=== PATIENT | male | born 1990 | race Caucasian/White ===

== ENCOUNTER 2016-10-08 08:04 | Inpatient (IN) | payer OTHER ==
[~2016-10-08] VITALS: Ht 172.7 cm; Wt 67.7 kg
--- NOTE | ~2016-10-08 | INDIVTXPLN ---
"PATIENT: HENRIQUE ARMENTA B | | [facility] UNIT #: [id number] | [address] AGE/SEX: 25 M : [birth year] | [address] | [place] [phone] ADMIT/REG DATE: 10/08/16 | ROOM: A.[facility] LOC: ADTC | ADTC | Individualized Treatment Plan Date: 10/29/16 Problem Statement/Issue Identified: Client needs to identify relapse warning signs and develop a plan to deal with them as they arise. Goal: Client will learn to identify relapse triggers and make a plan of how to avoid them. Objectives/Activities to achieve goal: 1. Client is to complete the Relapse Prevention packet and process it with counselor. Due Date:11/05/16 Complete: Incomplete: Client signature Date Counselor signature Date Outcome/Measurement of Progress Towards Goal: Counselor's signature Date "
--- NOTE | ~2016-10-08 | INDIVTXPLN ---
"PATIENT: HENRIQUE ARMENTA Scooter | | [facility] UNIT #: [id number] | [address] AGE/SEX: 25 M : [birth year] | [address] | [place] [phone] ADMIT/REG DATE: 10/08/16 | ROOM: A.[facility] LOC: ADTC | ADTC | Individualized Treatment Plan Date: 10/16/16 Problem Statement/Issue Identified: Client has learned to deny or stuff feelings; needs to learn to identify and process them in a clean/sober manner. Goal: Client will learn to identify and express feelings in a healthy, clean/sober manner. Objectives/Activities to achieve goal: 1. Client is to write the following people feelings letters, each separately, and process them with counselor and in family group, when able: His Mother, girlfriend, 2 children and his father. Due Date:10/23/16 Complete: Incomplete: Client signature Date Counselor signature Date Outcome/Measurement of Progress Towards Goal: Counselor's signature Date "
--- NOTE | ~2016-10-08 | TXPLANREV ---
"PATIENT: HENRIQUE ARMENTA | | [facility] UNIT #: [id number] | [address] AGE/SEX: 25 M : [birth year] | [address] | [place] [address] ADMIT/REG DATE: 10/08/16 | ROOM: A.[facility] LOC: ADTC | [facility] | Treatment Plan/Staffing Review Date: 10/29/16 Treatment plan was reviewed and determined appropriate as written: Yes Treatment plan was reviewed and the following changes/addition/deletions are necessary: Client is to continue working on treatment plan assignments. He is finishing up with feelings letters and will begin working on relapse prevention. Discharge plans were reviewed and determined appropriate as previously documented: No Discharge plans were reviewed and determined to be as follows: Client has been staffed with probation and our staff, and we agree he will be recommended to go to sober living, such as the [facility]. He will also be recommended to attend aftercare here at [facility], 3-5 AA/NA meetings per week, call a sponsor on a regular basis, seek multimedia production assistant employment and learn how to work a strong program of recovery. Other pertinent issues discussed during this staffing review include: None at this time. Staff Present: Emilia Barclay PRIMARY COUNSELOR: DUNCAN Michelle Client Signature Counselor Signature Date Time "
--- NOTE | ~2016-10-08 | RESCARESUM ---
"PATIENT: HENRIQUE ARMENTA | | [facility] UNIT #: [id number] | [address] AGE/SEX: 25 M : [birth year] | [address] | [place] [address] ADMIT/REG DATE: 10/08/16 | ROOM: [facility] LOC: ADTC | ADTC | Summary of Residential Care Primary Counselor: Agustina SONG Date of Admission: 10/08/16 Date of Discharge: 11/05/16 Referral Source: Courts and Coil Inspector, Preeti Shipley Primary Care Provider Prior to Admission: Self Admitting Diagnosis: 304.30 Cannabis Use Disorder, severe; 304.40 Stimulant Use Disorder, severe; near complete partial remission tobacco dependency and history of spinal cord trauma with spondylotic myopathy as previously evaluated and diagnosed by Dr. Benitez in Neurosurgery, ALL PER [facility] Discharge Diagnosis: Same Goals Achieved: Jordan was able to learn about the disease concept, about the negative consequences of his addiction, and his character defects, while learning about the program. He was able to complete feelings letters, and worked on relapse prevention. Continued Obstacles to Sobriety/Relapse Issues: Not going to meetings, or coming to aftercare, not dealing with feelings, not following rules and regulations of probation, not getting a job, not attending AA/NA meetings or getting a sponsor, and not learning how to work a strong program of recovery. Family Issues Addressed: The only issues addressed were those with his kids and his parents. He wrote and processed feelings letters to all of them. Y Individual Therapy Y Group Therapy Y Educational Series on Substance Abuse N Parents/Significant Others Attended Family Program N Acute Medical Problems During the Course of Treatment Y Transferred to Hospital During the Course of Treatment Y Accepting of Substance Abuse Problem N Non-accepting of Substance Abuse Problem N Required Psychological or Psychiatric Consultation During the Course of Treatment Completed AA Step # 1 During This Level of Care Significant Incidences During Treatment: Jordan slipped on the ice and fell and was taken to ER, where they discovered he had a mild concussion. He was feeling fine, had no complaints and stated he didn't have a headache or anything bothering him. Reason For Discharge: Y Completed Residential TX Goals and Ready For Next Level of Care N Left Tx Against Medical Advice/Treatment Goals Not Complete PATIENT: HENRIQUE ARMENTA Scooter | | [facility] UNIT #: [id number] | [address] AGE/SEX: 25 M : 89 | [address] | [place] [address] ADMIT/REG DATE: 10/08/16 | ROOM: [facility] LOC: ADTC | [facility] | Summary of Residential Care N Completed Residential Tx Goals But Refusing Continuing Care Recommendations N Discharged Due to Noncompliance/Treatment Goals not Completed N Discharged Earlier Than Planned Due to: Continuing Care Plan/Recommendations: N Intensive Partial Care Y Sponsor N Partial Care Y AA Meetings/NA Meetings Y Outpatient N Co-dependency Services N Therapeutic Community N [address] [facility] [address] [facility] N Mental Health Therapy N Marriage Counseling N Other Specific Continuing Care Plan: It is recommended that Jordan go to sober living, such as the [facility], attend aftercare here with Devan Pruett, and attend 3-5 AA/NA meetings, get and call a sponsor on a regular basis. Jordan chose to return home, but will attend aftercare. He is also recommended to follow all rules of probation, seek timers inspector employment and take care of his medical issue concerning his back. PRIMARY COUNSELOR: DUNCAN Michelle"
--- NOTE | ~2016-10-08 | TXPLANREV ---
"PATIENT: HENRIQUE ARMENTA B | | [facility] UNIT #: [id number] | [address] AGE/SEX: 25 M : [birth year] | [address] | [place] [phone] ADMIT/REG DATE: 10/08/16 | ROOM: A.[facility] LOC: ADTC | ADTC | Treatment Plan/Staffing Review Date: 10/22/16 Treatment plan was reviewed and determined appropriate as written: Yes Treatment plan was reviewed and the following changes/addition/deletions are necessary: Client is to continue working on treatment plan assignments. He is finishing up with feelings letters. Discharge plans were reviewed and determined appropriate as previously documented: No Discharge plans were reviewed and determined to be as follows: Client plans to return to his Mom's house, attend aftercare and meetings on a regular basis, as well as to get and call a sponsor. Other pertinent issues discussed during this staffing review include: None at this time. Staff Present: Devan Phan PRIMARY COUNSELOR: DUNCAN Michelle Client Signature Counselor Signature Date Time "
--- NOTE | ~2016-10-08 | CLPRLASSUM ---
PATIENT: HENRIQUE ARMENTA | | [facility] UNIT #: [id number] | [address] AGE/SEX: 25 M : 89 | [address] | [place] [phone] ADMIT/REG DATE: 10/08/16 | ROOM: [facility] LOC: ADTC | ADTC | Client Problem List/Assessment Summary Date: 10/15/16 Problems identified by the client: Client stated he is here for probation, of which he is on for the next 2 years for misdeamor assault and possession of drug paraphernalia. Problems identified by significant others: His Mother and girlfriend came in when client checked in and they just said they want him to get better and stay clean. Client's Strengths: Client identified his strengths as: He is patient, outgoing and understanding. Problem List: Code: T Client continues to use alcohol &/or drugs despite ongoing negative consequences. Code: T Client does not "reach-out to others for help" and instead resumes using alcohol &/or drugs. Code: T Client has learned to deny or stuff feelings; needs to learn to identify and process feelings with safe people to acquire the necessary skills to maintain halfway sobriety. Code: T Client needs to identify relapse warning signs and develop a plan to deal with them as they arise. Code: T Client needs to address criminal attitudes and beliefs which leads to substance abuse and crimes. Code Pérez: T: to be addressed during course of treatment O: problem noted, expected to resolve itself with abstinence--specific tx plan not required R: problem noted, will be referred upon discharge PRIMARY COUNSELOR: DUNCAN Michelle
--- NOTE | ~2016-10-08 | INDIVTXPLN ---
"PATIENT: HENRIQUE ARMENTA Scooter | | [facility] UNIT #: [id number] | [address] AGE/SEX: 25 M : 89 | [address] | [place] [phone] ADMIT/REG DATE: 10/08/16 | ROOM: A.[facility] LOC: ADTC | ADTC | Individualized Treatment Plan Date: 10/15/16 Problem Statement/Issue Identified: Client continues to use alcohol &/or drugs despite ongoing negative consequences, and he did not know anyone to reach out to for help, so continued using alcohol &/or drugs. Goal: Client will learn how to identify negative consequences of his addiction, attend AA/NA meetings and meet men in recovery. Objectives/Activities to achieve goal: 1. Client is to complete the How to Get Started packet, process it with counselor and selected pages in group. Due Date:10/17/16 Complete: Incomplete: 2. Client is to complete Step 1, process it with counselor and selected pages in group. Due Date:10/19/16 Complete: Incomplete: 3. Client is to attend AA/NA meetings, ask for and get at least 5 names and numbers of men in recovery and share that list with counselor. Due Date:10/28/16 Complete: Incomplete: Client signature Date Counselor signature Date Outcome/Measurement of Progress Towards Goal: Counselor's signature Date "
--- NOTE | 2016-10-08 14:50 | NUR ---
Education 0.5 Hour: Client attended a presentation by an outwside speaker who spoke on, "Cross Addiction."
--- NOTE | 2016-10-08 15:13 | NUR ---
ADMISSION NOTE Client is a 25 y/o single male, referred to treatment by the courts and brought here today by his mom and significant other. Client came from home in [place], where he reside with his mother. Client states DOC is marijuana and meth. Client states his most recent marijuana use was about a month a ago, and that he used a small amount of meth 4 days ago. Client states [facility] brings no medications with him today. Client anticipates family group participation from his mom and his significant other. Rights/Responsibilities: Copy given and explained to client. Signed and accepted by client. Client oriented to physical lay out of the ADTC unit, given Big Book and admission packet. A Jaime was assigned. Farhan
--- NOTE | 2016-10-08 16:08 | NUR ---
INITIAL SESSION/FAMILY SESSION 1 HR: Eva, his Mom and g/f were present. They had questions about the program, visiting, how long he'll be here, family education. All questions were answered, and he was oriented to my schedule and programming. Eva is here for court reasons. He stated he has 2 children, of which live w/ their mom. He has a no contact order with them, as he also has a strangulation charge. His mom is glad he's here, and that we are keeping him busy, and his g/f reported she's in recovery. He is to work on inititial paperwork.
--- NOTE | 2016-10-08 23:09 | NUR ---
Tech note: Client participated in beaded project for rec and attended an onsite AA meeting. He was checked into his room and seen by the DR. Client did first intro in meeting SE; starting treatment
--- NOTE | 2016-10-09 04:02 | NUR ---
Bed Note; Client was asleep and in no distress at all bed checks.
--- NOTE | 2016-10-09 09:58 | NUR ---
Tech notes: Client is working on Step 1.
--- NOTE | 2016-10-09 12:09 | NUR ---
AM GROUP 9:1/.5 HR: Peers participated in the ORIENTATION OF A THIS NEW PEER by identifying GROUP PURPOSE, GUIDELINES, GOALS AND OBJECTIVES. Client identified his drug of choice as meth, stating that he came in to treatment on his own. He did admit that he is on probation and with probing, identified he is on probation for possession and domestic assault. Client appeared drowsy at time, but he was able to stay awake. He was otherwise quiet as peers processed from assignments and took no personal risks..
--- NOTE | 2016-10-09 12:45 | NUR ---
Education note: Client attended education by [facility].
--- NOTE | 2016-10-09 17:44 | NUR ---
SPIRITUaL EDUCATION 1 HR. Todays topic after orienting newcomers was GRATITUDE with information taken from ATTITUDES OF GRATITUDE.
--- NOTE | 2016-10-09 19:20 | NUR ---
Education: 1 Hour. Client attended "Unresloved Anger" lecture and discussion presented by staff.
--- NOTE | 2016-10-09 23:11 | NUR ---
Tech note; Client played catch phrase for rec and attended an onsite NA meeting. SE; rec
--- NOTE | 2016-10-10 04:35 | NUR ---
Bed Note: Client was asleep and in no distress at all bed checks.
--- NOTE | 2016-10-10 10:48 | NUR ---
Tech Note: Client participated in light stretching for morning exercise and stated that he is working on Step One.
--- NOTE | 2016-10-10 11:21 | NUR ---
AM GRP 1.5 HRS, Ratio 1:9/ Clt sat mostly quiet, appearing to be just taking things in. When prompted, he stated he did dumb things while he was using. He could relate to partying w/ his Mom, but denied they are "friends".
--- NOTE | 2016-10-10 12:30 | NUR ---
IS 1 HR: Clkatt stated he is settling in and even tho he's really busy, he thinks it will be a good thing. He was asked about his father, of whom he doesn't have any contact with. He also has several brothers and sisters who live close, but he isn't real close to. He stated he is closest to his Mom. He is working on his initial paperwork.
--- NOTE | 2016-10-10 17:03 | NUR ---
Step ed/1 hr/ Handed out a worksheet on step 11 on prayer and meditation and had them complete and then we discussed. This client participated.
--- NOTE | 2016-10-10 17:49 | NUR ---
Education 1 Hour: Client heard a presentation from a member of the recovery community who shared his experience, strength and hope.
--- NOTE | 2016-10-10 23:40 | NUR ---
TECH NOTE: Client played Catch Phrase for REC and attended on site AA meeting. Walked into Guided Meditation 9 minutes late. SE: group/ AA
--- NOTE | 2016-10-11 02:19 | NUR ---
Education 1HR: Clt watched educational video entitled "Don't Meth With Me".
--- NOTE | 2016-10-11 04:52 | NUR ---
BED NOTE: Client was in bed, eyes closed and motionless all three bed checks
--- NOTE | 2016-10-11 11:58 | NUR ---
Group 1.5 Hr Ratio 1:12/Topics today were two step ones and two feelings letterts. A new client was orientated to group rules and goals. Client shared how he could relate to his peers and offered positive feedback.
--- NOTE | 2016-10-11 14:09 | NUR ---
PEER REVIEWS 1 HR: CLt participated in peer reviews and was able to give open and honest feedback to those receiving a review.
--- NOTE | 2016-10-11 15:45 | NUR ---
Tech Note: Client watched a video entitled "The Enablers" and is working on Step 1.
--- NOTE | 2016-10-11 20:49 | NUR ---
TECH NOTE: Client participated in reading guidelines, watched TV/movies and attended off site AA meeting. Client was redirected for being in bed, with lights out at shift change SE: Nap
--- NOTE | 2016-10-12 04:48 | NUR ---
BED NOTE: Client was in bed, motionless with eyes closed all bed checks.
--- NOTE | 2016-10-12 09:58 | HP ---
ADMIT: 10/08/2016 RM/LOC: [facility] MR#: [id number] [address] [facility] [address] [place] [id number] HENRIQUE ARMENTA [address] [place] [address] History and Physical SEX: M AGE: 25 : 1990 DATE OF SERVICE: CHIEF COMPLAINT: Chemical dependency. HISTORY OF PRESENT ILLNESS: The patient is a 25-year-old, single, male with 2 children who was court ordered to residential level treatment after a recent incarceration in May 2016, him being sent on probation and preferred residential level treatment for assault and possession of controlled substance. He states he has had prior DUI and MIPs. He hopes to get clean, straight, and sober. The patient's drug of choice on admission is pot. He first started smoking pot at 14 years of age with friends. In [employer] high, he smoked about 0.25 ounce a week. In high school he smoked a 0.25 to a 0.5 ounce a week. States he smoked that way off and on until the last month or so. He states in the last month he quit smoking pot due to his legal charges and probation. He has had two UAs that were both clean. His second drug of choice is methamphetamines. He first started smoking meth at 20 years of age. Initially, used it 1-2 times a week. He states his heaviest use was from February of 2016 to May 2016, after he hurt the spine. He had an injury and was diagnosed with a traumatic spondylitic myopathy by Dr. Benitez in Neurosurgery secondary to a fall. He states he was unable to work. So he just sat around and smoked meth. He states he was living with a drug dealer. He used a gram or more every day. His last use was around October 04 when he used less than a 0.5 g. He denies doing any IV drugs. He denies his third drug of choice but after questioning admits that he has abused alcohol in the past. He first started drinking at 14 years of age with friends. In ezio high, he would drink up to a liter of vodka a day. In high school, he drank a liter of hard liquor or up to a case a beers. States, he really drank that way from [age]. He states the last year too he has been drinking rarely. States he only drinks a couple times a year and will only have one or two drinks. His last alcohol was two drinks on 's Kamla. He denies any alcohol withdrawal seizures, DTs or hallucinations. He denied other drugs but looking at his record, he has tried cocaine once, mushrooms and acids a couple of times, and inhaled butane and has used high- dose Adderall and pain pills in the past for his back. CURRENT MEDICATIONS: None. ALLERGIES: NONE KNOWN. SOCIAL HISTORY: Is that of a 25-year-old, single, male. He has 2 children from a prior relationship and currently has a restraining order. He is unemployed. He has a prior spinal injury from a fall and was diagnosed with spondylotic myopathy by Dr. Benitez in Neurosurgery. MEDICATIONS: None. ADMIT: 10/08/2016 RM/LOC: [facility] MR#: [id number] [address] [place] [id number] HENRIQUE ARMENTA [facility] [place] [address] History and Physical SEX: M AGE: 25 : 1990 ALLERGIES: NONE KNOWN. SOCIAL HISTORY: Is that of a 25-year-old, unemployed single male, two kids. FAMILY HISTORY: Hypertension and diabetes. Maternal grandmother, mother and father had a history of alcohol abuse. REVIEW OF SYSTEMS: Remarkable for some problems with balance coordination in his arms as well as his legs. He has an abnormal gait. PHYSICAL EXAMINATION: HEENT: Pupils are reactive. TMs normal. Throat unremarkable. NECK: Without nodes or masses. HEART: Regular without murmur. LUNGS: Clear. ABDOMEN: Soft, benign. AND RECTAL: Deferred. EXTREMITIES: Reveal no clubbing, cyanosis, or edema. He has an abnormal gait and some abnormal dexterity in his hands. NEURO: He has no clubbing, cyanosis, or edema. ASSESSMENT: Cannabis use disorder severe; stimulant use disorder, severe; alcohol use disorder, severe; and near complete partial remission tobacco dependency and history of spinal cord trauma with spondylotic myopathy as previously evaluated and diagnosed by Dr. Benitez in Neurosurgery. PLAN: We will place him on a multivitamin and thiamine given his history of alcohol abuse and dependency. We will proceed with drug and alcohol abuse dependency treatment counseling and further evaluation and management based on the course during the hospitalization. Please see his hospital record for further details. Albin Leiva MD/ dora JOB #: [id number] CC: Albin Leiva, Attending Physician NO FAMILY PHYSICIAN, Family Physician
--- NOTE | 2016-10-12 15:40 | NUR ---
Tech notes: Client attended NA panel this morning and working on Step 1 and had visit.
--- NOTE | 2016-10-12 18:40 | NUR ---
tech note: client attended offsite recovery event.
--- NOTE | 2016-10-13 04:39 | NUR ---
Bed Note: Clt lay motionless in bed with eyes closed showing no distress at all bed checks.
--- NOTE | 2016-10-13 15:15 | NUR ---
Tech Note: Client participated in big book study and is working on step 1. Client had a visitor.
--- NOTE | 2016-10-13 23:33 | NUR ---
Tech note: Watched Superbowl, attended optional SLITTING MACHINE OPERATOR meeting SE:whole day
--- NOTE | 2016-10-14 04:35 | NUR ---
BED NOTE: Client was in bed, motionless, with eyes closed all bed checks.
--- NOTE | 2016-10-14 10:25 | NUR ---
Tech notes: Client is working on Step 1
--- NOTE | 2016-10-14 11:30 | NUR ---
Group 1.5hr/ 2:22 Clients all participated in THE WALL reading, drawing and sharing about their celeste with the group showing character defects and relapse triggers, plus what has helped them go gain hope and support in taking down their wall.
--- NOTE | 2016-10-14 12:55 | NUR ---
Education note: Client attended education by [facility], HIV testing.
--- NOTE | 2016-10-14 17:02 | NUR ---
Recovery 101 1 hr/ Clients involved in identifying and discussion about fundamentals of recovery. Did discuss types of meetings, how to get and use sponsors, working steps, reading DONNIE literature, using slogans/serenity prayer/tools, not to start new relationship first year, encourage family to go to [facility] and open AA/NA, finding a HP/home group, HOW/sayings/slogans, etc.
--- NOTE | 2016-10-14 18:21 | NUR ---
Education: 1 Hour. Client attended "Forgiveness" lecture given by staff.
--- NOTE | 2016-10-14 22:58 | NUR ---
tech note: client played Catch Phrase for recreation & attended onsite NA mtg. SE: all the food in the frig.
--- NOTE | 2016-10-15 05:16 | NUR ---
Tech Note: Clt lay motionless in bed with eyes closed showing no distress at all bed checks.
--- NOTE | 2016-10-15 11:30 | NUR ---
GROUP 1.5 HRS. 1:9 Group discussion included HOW TO GET STARTED IN TREATMENT assignments as well as issues of childhood abuse and unhealthy relationships. This client was mostly quiet and admitted that when he heard peer share about kids, he began reminiscing about his own kids.
--- NOTE | 2016-10-15 13:51 | NUR ---
Education 1 Hour: Client attended a presentation on "Tobacco Educaton."
--- NOTE | 2016-10-15 15:36 | NUR ---
Tech Note: Client participated in light stretching for morning exercise and walked in the halls in the afternoon. Client stated that he is working on Step One.
--- NOTE | 2016-10-15 15:57 | NUR ---
Relapse Prevention, 1.0, Client attended and actively participated in relapse prevention education which focused on the relapse quiz "What Do You Know About Relaps?"
--- NOTE | 2016-10-15 22:50 | NUR ---
Education note: 1 hour, lecture given by counselor on what heck are you willing to pay.
--- NOTE | 2016-10-15 23:15 | NUR ---
Tech note: Instead of rec clients went to an alumni meeting and attended an onsite AA meeting. SE; Meeting
--- NOTE | 2016-10-16 04:23 | NUR ---
Bed Note: Client was in bed with eyes closed and in no distress at all bed checks.
--- NOTE | 2016-10-16 10:00 | NUR ---
IS 1 HR: Processed eva's BPS, and some of the pages in his How to Get Started pkt. He shared about his family living in [facility], and an uncle taking his siblings away from his Mom, who was alcoholic. He got away from them, so he was the only one who stayed with his Mom, until they came to the [place] and were reunited. One of his brothers got "marshalled out", meaning he got into so much trouble, the marshalls flew him out of [facility]. He joined the , but has since gotten into more trouble. He has 3 other siblings who were , but he started using and got involved w/ his kids' Mom, and has stayed around here since coming at age 14. Eva has back issues w/ his sciatic nerve, and broke his tail bone, as well, so is dealing with pain on a daily basis. He heard to fill out a self-care sheet and use heat/ice to help.
--- NOTE | 2016-10-16 10:25 | NUR ---
Rose Notes: Client is working on BB and mtg with aleena
--- NOTE | 2016-10-16 11:30 | NUR ---
GROUP 1.5 HRS. 1:10 Group discussion included HOW TO GET STARTED IN TREATMENT as well as defenses and conflicts on the unit. This client was active in group discussion and encouraged peers to participate more as well.
--- NOTE | 2016-10-16 13:36 | NUR ---
SPIRITUAL EDUCATION 1 HR. Topics today were on getting out of self centered behavior and recovery slogans. Clients made BB bookmarks w slogans and also anonymously wrote welcoming letters for newcomers.
--- NOTE | 2016-10-16 17:55 | NUR ---
ducation Note: Client attended education speaker Eder
--- NOTE | 2016-10-16 20:42 | NUR ---
Education: 1 hour lecture on boundaries given by counselor
--- NOTE | 2016-10-16 22:24 | NUR ---
Tech note : Client participated in rec by playing catch phrase and attended an onsite NA meeting. SE; NA meeting
--- NOTE | 2016-10-17 03:53 | NUR ---
Bed note : Client was motionless and in no distress at all bed checks.
--- NOTE | 2016-10-17 10:30 | NUR ---
Tech Note: Client participated in light stretching for morning exercise. Client stated that he is working on reading the NA book.
--- NOTE | 2016-10-17 11:35 | NUR ---
Group 1.5hors 1:8 Clients shared feelings letters and went over assignments. Client shared about how he could relate to the stories being shared and how he wanted to have a second chance. Student: Isabell Hughes
--- NOTE | 2016-10-17 13:57 | NUR ---
Education 1 Hour: Client watched the vidoe, "Predator" by Torres Sanon.
--- NOTE | 2016-10-17 16:46 | NUR ---
FAMILY EDUCATION 3 HRS. Client was accompanied by his girlfriend. They took part in the discussion on the disease concept. Client shared chemical history and the consequences. Girlfriend shared that they have only been dating a couple of weeks but have known each other since 2011. She reports they both quit using on and that she plans to enter treatment after client completes even though her mom does not support that decision.
--- NOTE | 2016-10-17 21:01 | NUR ---
Education: 1 Hour. Client attended "Spiritual Awakening" video.
--- NOTE | 2016-10-17 23:07 | NUR ---
Tech Note: Client played a game for recreation and attended onsite A.A. Meeting. SE: A.A. meeting.
--- NOTE | 2016-10-18 04:15 | NUR ---
Tech Note: Client was motionless with no distress at all bed checks.
--- NOTE | 2016-10-18 12:14 | NUR ---
Group 1.5 Hr Ratio 1:9/Topics today were feelings letters and two new peers were orientated to group rules and goals. Client shared how he could relate to saying one thing to his so and doing another.
--- NOTE | 2016-10-18 14:28 | NUR ---
PEER REVIEWS 1 HR: Clt participated in peer review process and was able to give open and honest feedback to those receiving a review.
--- NOTE | 2016-10-18 15:52 | NUR ---
Tech Note: Client joined in outdoor group walk, watched "Marijuana" video (by Torres Sanon) and is working on Feelings Letters and the Big Book.
--- NOTE | 2016-10-18 23:23 | NUR ---
TECH NOTE: Client participated in reading guidelines, watched tv/movies and attended optional AA meeting. SE: nathan
--- NOTE | 2016-10-19 04:22 | NUR ---
Bed Note: Clt lay motionless in bed with eyes closed showing no distress at first two bed checks. The last bed check clt looked at tech.
--- NOTE | 2016-10-19 14:28 | NUR ---
IS 1 HR: Clt shared the remaining pages of his How to Get STarted pkt. He has a good willingness statement. He also shared pages 10-11 of Step 1, and advised he compromised his mom, g/f, kids and exg/f, including other more materialistic things, such as a car, his license, school. He is now working on feelings letters.
--- NOTE | 2016-10-19 16:11 | NUR ---
Tech Note: Client attended an off-site AA meeting. Client stated that he is working on writing Feelings Letters. Client received visitors.
--- NOTE | 2016-10-19 20:07 | NUR ---
TECH NOTE: Client played Charades in REC, attended off site AA meeting and watched tv/movies SE: Whole day
--- NOTE | 2016-10-20 04:43 | NUR ---
Bed Note: Clt lay motionless in bed with eyes closed showing no distress at all bed checks.
--- NOTE | 2016-10-20 14:50 | NUR ---
Tech Note: Client stated that he is working on writing Feelings Letters. Client received a visit.
--- NOTE | 2016-10-20 23:20 | NUR ---
Tech Note: Client attended A.A.Panel. Client watched tv. Client also attended the HOTEL SUPPLIES SALESPERSON meeting. SE: [facility] meeting
--- NOTE | 2016-10-21 04:32 | NUR ---
Bed Note: Clt lay motionless in bed with eyes closed showing no distress at all bed checks.
--- NOTE | 2016-10-21 09:49 | NUR ---
Tech Notes: Client is working on Fl's.
--- NOTE | 2016-10-21 11:30 | NUR ---
Group 1.5 hr/ 8:1 This client shared his GS packet, that he lived with his mom who was alcoholic but the older siblings lived with extended family. He was Happy/Sad as child and teen. He said by age 14 he started drinking and was a full blown alcoholic by 18. He was asked about other drugs and said he did everything except crack and heroine, and never IV. Client missed his siblings but they did come back around later in teen/young adult years. He had been outgoing but became more isolated as his addiction progressed. He was stubborn/close minded, never had job with benefits, and now is ready and willing, wants to be there for his family. He also shared page 10-11 of step 1 and a page on effects with emotions. He owned his addiction causing unmanageabilities, missed out on parenting his kids when locked up/into addiction. Never bought a car cause all $ went to drugs. Client also referred to himself as a workaholic. He wants to be a good dad, wants recovery, didn't like himself but liked the high and thought it made life better when in his addiction. Clients heard peers share letters, this client was involved in relating and feedback.
--- NOTE | 2016-10-21 13:49 | NUR ---
rolando note: Client attended speaker Torin Patel
--- NOTE | 2016-10-21 21:00 | NUR ---
FAMILY EDUCATION 3 HRS., GROUP 2 HRS. 2:6 Client attended education alone. Mom and a young male (possible brother) arrived in the middle to deliver items to client but were not willing to stay and participate in family work. Mom advised her S/O is sick but she would try to return for evening but did not. Male made fun of client and stated that he did not have family. He stated there is no addiction in the family despite stating earlier that he didn't need family when he was in treatment. He clarified this was for alcohol when he was in the service. Client took part in the discussion on the family roles, codependency and detachment. His new girlfriend joined him for group. She shared about addiction in her family. Client was tearful and shared that he wished his dad was here to support him in treatment.
--- NOTE | 2016-10-21 22:48 | NUR ---
Client attended Family. SE: Family
--- NOTE | 2016-10-21 23:05 | NUR ---
Education Note: One hour lecture on adult children of alcoholics given by counselor.
--- NOTE | 2016-10-22 04:08 | NUR ---
Bed Note: Client was in bed with eyes closed and motionless at all bed checks except first check when client was in restroom.
--- NOTE | 2016-10-22 12:20 | NUR ---
GROUP 1.5 HRS. 1:10 Clients participated in orienting new peer to purpose and rules of group. Peer processed from his step 1 assignment identifying effects on social life (pg. 6) and destructive behavior towards oneself and others (pg. 7). This client identified towards the end of group, that when he began spending time alone is when he ended up in treatment. He is encouraged to share more about that in the next group.
--- NOTE | 2016-10-22 14:00 | NUR ---
IS 1 HR: Eva shared a feelings letter he had written to his kids. He struggled reading it, but did a pretty good job of it. We discussed his kids' Mom calling here wanting to know about visiting this weekend. He stated he isn't sure if there's a no contact order but heard if there is, she cannot visit. We discussed his relationship w/ her and he advised he still cares for her. Eva is asking about being able to go home, but heard we may want to seriously think about sober living.
--- NOTE | 2016-10-22 14:49 | NUR ---
Tech Note: Client participated in group walk for exercise, watched the first half of [employer] for education and is working on Feelings Letters.
--- NOTE | 2016-10-22 16:00 | NUR ---
Relapse Prevention, 09/23, 1.0 hours, Client attended and actively participated in relapse education which focused on compulsive behaviors and relapse.
--- NOTE | 2016-10-22 16:42 | NUR ---
Education Note: Client participated in Relapse Prevention education.
--- NOTE | 2016-10-22 18:22 | NUR ---
Education: 1 HOUR. Client attended "Codependency" lecture given by staff.
--- NOTE | 2016-10-22 22:28 | NUR ---
TECH NOTE: Client played Catch Phrase for REC, participated in Guided Meditation, and attended AA meeting. SE: AA
--- NOTE | 2016-10-23 04:35 | NUR ---
tech note: client was motionless in no distress @ all bed checks.
--- NOTE | 2016-10-23 11:18 | NUR ---
Tech notes: Client is working on Fl's and mtg with aleena.
--- NOTE | 2016-10-23 13:04 | NUR ---
Group 1.5hrs 1:9 Student: Isabell Hughes Clients shared feelings letters and received feedback from peers. Client shared how he related to issues about unhealthy relationships.
--- NOTE | 2016-10-23 13:20 | NUR ---
Education note: Client attended speaker Sylvester for education.
--- NOTE | 2016-10-23 16:14 | NUR ---
SPIRITUAL EDUCATION 1 HR. We oriented newcomers to spirituality group, and todays activities were putting on presentations from parts of TOWARDS SPIRITUALITY book.
--- NOTE | 2016-10-23 23:09 | NUR ---
tech note: Client played Pictionary for recreation & attended onsite NA meeting. Client was seen out on the patio sitting with a female.Client came in to get a coat and tech asked client who the female was.Client was hesitant to say who she was. Client told tech that she was his baby's mother. Client asked tech if the meeting was open & said he was going out to see if she was coming in for the meeting. Tech went out to get the client when it was time for the meeting to start. Client attended the NA meeting. Staff isn't certain what the issue was. SE: NA meeting.
--- NOTE | 2016-10-23 23:29 | NUR ---
Eduction: 1 Hour. Client attended "Disease Concept" lecture.
--- NOTE | 2016-10-24 05:39 | NUR ---
tech note: Client was motionless in no distress at all bed checks.
--- NOTE | 2016-10-24 10:24 | NUR ---
Tech Note: Client participated in Spiritual Enrichment. Client stated that he is working on writing Feeling Letters.
--- NOTE | 2016-10-24 12:02 | NUR ---
Group 1.5 Hr Ratio 1:11/Topics today were orientating two new members to group rules and goals. A feelings letter and dealing with anger. Client shared a feelings letter to his son and did ok. Client also shared how he did bot deal with anger in a positive manner.
--- NOTE | 2016-10-24 15:34 | NUR ---
Education 1 Hour: Client heard a panel of speakers from the local recovery community, who shared their experience, strength and hope.
--- NOTE | 2016-10-24 16:58 | NUR ---
Step education/1 hr/ Focus was on step one. Each person completed a worksheet on this topic and then chose 4 from sheet to share out loud. This person participated.
--- NOTE | 2016-10-24 23:24 | NUR ---
TECH NOTE: Client redecorated the building for [employer], participated in Guided Meditation and attended on-site AA meeting. Late for curfew because was cleaning the REC room. SE: REC / AA
--- NOTE | 2016-10-25 04:37 | NUR ---
Bed Note: Clt lay motionless in bed with eyes closed showing no distress at last two bed checks. The first bed check looked at tech.
--- NOTE | 2016-10-25 11:59 | NUR ---
Group 1.5 Hr Ratio 1:11/Topics today were a Getting Started packet, Orientating a new client to group rules and goals and issues. Client shared what he thought a peer should be doing instead of relatingto what he related to. Client appears to be sleeping most of the time but was always awake when confronted.
--- NOTE | 2016-10-25 13:00 | NUR ---
PEER REVIEWS, 1 HR: Clt participated in peer review process and was able to give open and honest feedback to those receiving a review.
--- NOTE | 2016-10-25 14:00 | NUR ---
IS 1 HR: Clt shared that he didn't have any more of his feelings letters done yet. He stated since the night his kids' Mom came and he spoke to her, he has felt stuck. We discussed the fact that he is allowing his other addiction, women, to mess with his tx. He wasn't able to understand he's addicted to women, because he's here to work on himself. He heard he has to heal from the relationship with her before he has anything to offer this new one. He plans to let his kids' mom know she can bring them up to visit, and tell his g/f to come the next day.
--- NOTE | 2016-10-25 15:50 | NUR ---
Tech Note: Client watched the second half of Pleasure [employer] for education and is working on Feelings Letters.
--- NOTE | 2016-10-25 20:33 | NUR ---
Tech note: client watched tv and movies, attended optional offsite AA mtg SE:all day
--- NOTE | 2016-10-26 04:37 | NUR ---
Bed note: client was in bed with eyes closed and no distess at all bed checks
--- NOTE | 2016-10-26 16:31 | NUR ---
Tech Note: Client attended N.A.Panel and is working on Feelings Letters and also had a visit.
--- NOTE | 2016-10-26 20:15 | NUR ---
tech note: Client did service work at offsite location where clients attended the AA meeting. Client talked on the phone & watched tv. SE: visit with kids.
--- NOTE | 2016-10-26 21:47 | NUR ---
tech note: client c/o level 8 back pain @ 2527,motrin 400 mg given.
--- NOTE | 2016-10-27 05:01 | NUR ---
Bed Note : Client had eyes closed and in no distress at all bed checks.
--- NOTE | 2016-10-27 16:36 | NUR ---
Tech Note: Client is working on Big Book and feelings letters. Client had visitors.
--- NOTE | 2016-10-27 23:39 | NUR ---
TECH NOTE: Client attended AA panel, participated in community clean and watched tv/movies. Attended optional UX UI DESIGNER meeting. s/o came to meeting SE: visitors
--- NOTE | 2016-10-28 04:15 | NUR ---
BED NOTE: Client was in bed, motionless with eyes closed all three bed checks.
--- NOTE | 2016-10-28 10:40 | NUR ---
Tech notes: Client is working on Fl's.
--- NOTE | 2016-10-28 12:38 | NUR ---
Experiential Group 1.5 hr/ Clients all participated in family sculpturing by role-playing, feedback, and relating. They also shared what they needed to get help with and a gratitude. He wants help to learn about parenting and life sober, is grateful to treatment, family/friends.
--- NOTE | 2016-10-28 13:32 | NUR ---
Education note: Client watched video "It can't happen to me"
--- NOTE | 2016-10-28 16:00 | NUR ---
RECOVERY 101 1 HR/ Clients learned about Fundamentals of recovery and tools from AA/NA. They participated by sharing what they hear at meetings that are important for their recovery like: working the steps, how to get and use sponsors, reading C.A.L. literature, service work, HP concept, opening up, slogans, using the Serenity Prayer, attending functions, what is closed and open meetings, etc.
--- NOTE | 2016-10-28 19:07 | NUR ---
Education 1HR: Clt attended lecture given by counselor on "Communication".
--- NOTE | 2016-10-28 22:34 | NUR ---
Tech note: Client participated in group by playing catch phrase. Client attended an onsite NA meeting. Clients S/O was at the meeting but they did not sit togather. SE: Finding out the truth at the NA meeting.
--- NOTE | 2016-10-29 05:08 | NUR ---
Bed note : Client was motionless with eyes closed at all bed checks.
--- NOTE | 2016-10-29 14:25 | NUR ---
IS 1 HR: Eva shared part of his feelings letter to his father. It was more of a vent letter, written about his absence. Clt advised he isn't done with it yet, and doens't hink he'll have anything good to say in it. He heard whatever he feels is what he needs to write, to not think about it so much, just write. He was excused to go to the chapel and work on finishing it.
--- NOTE | 2016-10-29 16:12 | NUR ---
A.M. 1.5 hr group/ratio 09/14 Group heard a getting started and a step one. Discussion was on not being too sure of yourself that you won't relapse. This client did have good feedback for peer but also was joking around a lot.
--- NOTE | 2016-10-29 16:35 | NUR ---
Tech Note: Client watched video The Enabler and is working on Feelings Letters.
--- NOTE | 2016-10-29 18:48 | NUR ---
Education: 1 Hour. Client attended presentation given by [facility] AIDS/STDS/HIV. HIV testing was available.
--- NOTE | 2016-10-29 20:16 | NUR ---
Relapse Prevention,09/27 1.0, Client attended and participated in relapse prevention education which focused on internal and external triggers.
--- NOTE | 2016-10-29 23:10 | NUR ---
Tech note: Client participated in rec by playing pictionary. Client went to guided meditation and attended an onsite AA meeting. SE: Waking up sober
--- NOTE | 2016-10-30 05:34 | NUR ---
tech note: client was motionless in no distress at all bed checks.
--- NOTE | 2016-10-30 10:21 | NUR ---
Tech Notes: Client is working on Fl's and mtg with aleena
--- NOTE | 2016-10-30 10:42 | NUR ---
IS 1 HR: Eva shared the rest of his Dad's feelings letter. He voiced that he has forgiven him, and that even tho he doesn't know what to say to his kids, he does want them to know about their culture and about him. We discussed his moving here at age 14 and what he remembers his life to be in [facility]. He stated it's beautiful, and he has some good memories, but not many bad, however, he can't remember when he was very young, either. Eva is to finish his remaining feelings letters.
--- NOTE | 2016-10-30 16:00 | NUR ---
SPIRITUAL EDUCATION 1 HR. We started a two part education on Forgiveness today and group discussion on lopez points.
--- NOTE | 2016-10-30 23:27 | NUR ---
Tech note:Client participated in rec-worked on beaded projects SE:sobriety
--- NOTE | 2016-10-30 23:41 | NUR ---
Education: 1 hour lecture on step 2 & 3 given by counselor
--- NOTE | 2016-10-31 04:40 | NUR ---
Bed note: client was in bed with eyes closed and no distress at all bed checks.
--- NOTE | 2016-10-31 11:30 | NUR ---
Group 1.5hr/ 11:1 Clients all were attentive as peers shared GS packets and some shared how they relate. This client did give feedback and relate.
--- NOTE | 2016-10-31 11:51 | NUR ---
Group 1.5hrs 1:10 Two new clients were orientated about group goals and rules. Feelings letters were shared and feedback was given by peers. Client shared how he could relate about his children. Student- Isabell Hughes
--- NOTE | 2016-10-31 14:21 | NUR ---
Education 1 Hour: Client heard a presentation on, "Marijuana."
--- NOTE | 2016-10-31 15:14 | NUR ---
Tech Note: Client participated in Spiritual Enrichment in the morning and walked in the halls for afternnon exercise. Client stated that he is working on writing Feelings Letters nad reading the NA book.
--- NOTE | 2016-10-31 23:06 | NUR ---
Tech Note: Client participated in rec and attended A.A.Meeting.
--- NOTE | 2016-10-31 23:24 | NUR ---
Education Note: Client watched the healthy families video which lasted an hour.
--- NOTE | 2016-11-01 04:49 | NUR ---
Bed note: Client was in bed with eyes closed and no distress at all bed checks
--- NOTE | 2016-11-01 11:30 | NUR ---
Group 1.5hr/ 11:1 Clients all were attentive as peers shared GS packets and some shared how they relate. This client did give feedback and relate.
--- NOTE | 2016-11-01 14:54 | NUR ---
PEER REVIEWS 1 HR: Clt participated in peer review process and was able to give open and honest feedback to those receiving a review.
--- NOTE | 2016-11-01 16:33 | NUR ---
Tech Note: Client watched a video "How to Sabotage Your Treatment" and is working on Feelings Letters.
--- NOTE | 2016-11-01 23:55 | NUR ---
TECH NOTE: Client participated in guideline reading, watched tv/movies and used the phone. Attended off site AA meeting SE: All day
--- NOTE | 2016-11-02 04:48 | NUR ---
BED NOTE: Client was in bed, motionless with eyes closed all three bed checks.
--- NOTE | 2016-11-02 12:34 | NUR ---
PEER REVIEWS 1 HR: Clt participated in peer review process and received his own. He heard he is ashamed of past, needs to slow down, likes the game, hides behing humor, gets angry easily, helps others but not himself, needs to take his own advice, needs to share feelings and open up, always wants to be the "coolest" person around, likes to cut corners, has a wall up, Client shared he felt sad, hurt, mad, glad, afraid and ashamed.
--- NOTE | 2016-11-02 16:24 | NUR ---
Tech Note: Client went to AA mtg at [address] [place] [address]. Is working on the Big Book.
--- NOTE | 2016-11-02 20:06 | NUR ---
TECH NOTE: Client played Catch Phrase for REC, attended off site AA meeting, watched TV/movies and used phone. SE: visitors
--- NOTE | 2016-11-03 04:50 | NUR ---
Bed Note: Clt lay motionless in bed with eyes closed showing no distress at all bed checks.
--- NOTE | 2016-11-03 11:22 | NUR ---
Tech Note: This tech spoke to clt at 1030 regarding his diagnosed concussion. The clt stated that he was not feeling any dizzyness, nausea or headaches. He declined Ibuprofen offered for pain.
--- NOTE | 2016-11-03 16:12 | NUR ---
Tech Note: Client participated in Big Book Study. Client stated that he is working on writing Feelings Letters.
--- NOTE | 2016-11-03 22:54 | NUR ---
TECH NOTE: Client attended AA panel, participated in community clean and watched tv/movies. attended mixing machine operator meeting SE: mixing machine operator
--- NOTE | 2016-11-04 04:26 | NUR ---
Bed Note: Clt lay motionless in bed with eyes closed showing no distress at first two bed checks. The last bed check clt waved too tech.
--- NOTE | 2016-11-04 10:18 | NUR ---
Rose notes: Client is working on Keli Simon
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
--- NOTE | 2016-11-04 12:44 | NUR ---
Education Note: Client attended educational speaker Kit on Crossaddiction.
--- NOTE | 2016-11-04 16:00 | NUR ---
RECOVERY 101 1 HR/ Clients all brought big books, were given highlighters and shown tools they can use in the big Book on: acceptance, 1/2measures, 12 promises, living in the solution-not the problem, resentments, 2 week prayer to forgiveness, etc. Clients took turns reading and some commented and asked questions.
--- NOTE | 2016-11-04 20:36 | NUR ---
Education: 1 hour lecture on feelings given by counselor
--- NOTE | 2016-11-04 23:47 | NUR ---
Tech Note: Client played a game for rec, and attended N.A.Meeting. SE: N.A.Meeting/Talk With Siva
--- NOTE | 2016-11-05 04:04 | NUR ---
bed note: client was in bed with eyes closed and no distress at all bed checks.
--- NOTE | 2016-11-05 13:15 | NUR ---
DISCHARGE NOTE Client completed treatment and left the facility, taking all personal belongings with him. Discharge instructions were reviewed and a signed copy provided to the client.
--- NOTE | 2016-12-22 15:25 | DS ---
ADMIT: 10/08/2016 RM/LOC: [facility] MR#: [id number] [facility] [address] [place], [place] [id number] JOSE ANTONIO ARMENTA [address] [place] [address] General Discharge Summary SEX: M AGE: 25 : 1990 ADMISSION DATE: 10/08/2016 DISCHARGE DATE: 11/05/2016 INDICATION FOR HOSPITALIZATION: Jose Antonio is a 25-year-old, single, male, who is admitted to residential level treatment by court order after recent incarceration in May 2016, for assault and possession of a controlled substance. His drug of choice on admission is cannabis. Second drug of choice methamphetamines. Please see his admission H and P for further details regarding his history of present illness, past medical history, physical exam, and assessment at time of hospitalization. HOSPITAL COURSE: On admission, he was admitted to our residential level treatment [facility]. He was started on multivitamin and thiamine given his history of alcohol abuse and dependency. He was started on Motrin for his arthralgias. During treatment, his primary care counselor assigned was Agustina Moreno. During treatment, he underwent individual and group therapy sessions on drug and alcohol abuse and dependency. Relapse triggers were identified and relapse prevention plan was outlined. He completed an educational series on substance abuse. Family issues addressed include feeling letters with his children and his parents and letters were written. He was overall accepting of substance abuse problems. He completed step 1 of Alcoholics Anonymous. He sustained a mild concussion and was evaluated in the ER after he slipped and fell on the ice. Reason for discharge was completion of residential level treatment goals. Aftercare recommendations include sponsor assignment with admission to the [facility] or [facility]. He was to have outpatient counseling with active AA and NA meeting involvement. MEDICATIONS: At time of discharge include: 1. Multivitamin 1 daily. 2. Thiamine 100 mg daily along with p.r.n. Motrin. ADMIT: 10/08/2016 RM/LOC: [facility] MR#: [id number] [id number] [address] GEOVANY SJHAILOKESH Helms [address] [place] [address] General Discharge Summary SEX: M AGE: 25 : 1990 LAB/X-RAY DATA: None indicated. FINAL DISCHARGE DIAGNOSES: Include: 1. Cannabis use disorder, severe. 2. Stimulant use disorder, severe. 3. Alcohol use disorder, severe. 4. Tobacco dependency. 5. History of spinal cord trauma with spondylotic myopathy, diagnosed by Dr. Benitez. PROCEDURES: Include drug and alcohol abuse dependency treatment and counseling and evaluation of concussion in the ER. Albin Leiva MD/ aracelyl JOB #: [id number] CC: Albin Leiva MD, Attending Physician FAMILY PHYSICIAN, Family Physician
== END 2016-11-05 10:49 | disposition home or self-care (01) | DRG 895 ==
LOC: ADTC 08:04
PROVIDERS: ADMIT Family Medicine
DX: F12.20 Cannabis dependence, uncomplicated (principal); F15.20 Other stimulant dependence, uncomplicated; M47.10 Other spondylosis with myelopathy, site unspecified; F10.21 Alcohol dependence, in remission; R26.9 Unspecified abnormalities of gait and mobility; R27.8 Other lack of coordination; F17.200 Nicotine dependence, unspecified, uncomplicated; Z91.81 History of falling; Z65.3 Problems related to other legal circumstances; Z56.0 Unemployment, unspecified; Z81.1 Family history of alcohol abuse and dependence

== ENCOUNTER 2016-11-02 23:58 | Emergency (ER) | payer OTHER ==
--- NOTE | 2016-11-03 06:11 | ER ---
ADMIT: 11/02/2016 RM/LOC: ER [facility] MR#: [id number] [facility] [id number] HENRIQUE ARMENTA [address] [place] [address] Emergency Room Report SEX: M AGE: 25 : 1990 DATE: 11/03/2016 The patient is a 25-year-old male, resident of [facility], was out smoking a cigarette when he slipped on the ice, hit his head, had subsequent headache, nausea, and vomiting developed over the course of an hour. Denies any neck pain or altered level of consciousness. Exam remarkable for nontoxic, afebrile male. No acute distress. CT head negative. Advised ice, Tylenol, and no more smoking. Sachin Massey MD/ dora JOB #: [id number] CC: Sachin Massey MD, Attending Physician Eder Nolasco MD, Family Physician
== END 2016-11-03 00:35 | disposition home or self-care (01) ==
LOC: ER 23:58
DX: S09.90XA Unspecified injury of head, initial encounter (principal); F17.210 Nicotine dependence, cigarettes, uncomplicated; W00.0XXA Fall on same level due to ice and snow, initial encounter

== ENCOUNTER 2017-05-19 11:14 | Emergency (ER) | payer SELFPAY | END 2017-05-19 12:12 | disposition home or self-care (01) | DX: S83.92XA Sprain of unspecified site of left knee, initial encounter (principal); F17.210 Nicotine dependence, cigarettes, uncomplicated; Z79.899 Other long term (current) drug therapy; W18.42XA Slipping, tripping and stumbling without falling due to stepping into hole or opening, initial encounter; Y92.009 Unspecified place in unspecified non-institutional (private) residence as the place of occurrence of the external cause ==